=== PATIENT | female | born 1985 | race Asian ===

== ENCOUNTER 2018-07-02 21:59 | Emergency (ER) | payer OTHER ==
[2018-07-02 22:19] VITALS: BP 99/67
--- NOTE | 2018-07-02 22:55 | EDPHY ---
H & P Stated Complaint: right knee swelling Time Seen by Provider: 07/02/18 22:45 HPI/ROS: Chief Complaint: Lesion behind right knee HPI: 32-year-old woman had which she believes was eczema behind her right knee. She scraped off a scab about a week ago while she was traveling in [facility]. She was given ointment which include antibiotic, antifungal and a steroid. She has been applying this for the last week. She says the ointment is burning and she concerned that might be infected. Denies any fevers or chills. She has been able to fully bend and extend her leg. She has been covering it up with a bandage. Last night she lifted open to the air. Denies any fevers or chills. ROS: 10 systems were reviewed and were negative except those elements noted in the HPI. PMH: Denies Social History: No smoking, no alcohol, no recreational drug use Family History: non-contributory Physical Exam: General: Awake, alert, no acute distress Right leg: Patient has a area of excoriation and skin abrasion approximately 2 cm x 1 cm in the the popliteal fossa. There is no significant swelling. There is no erythema. Is not warm to touch. There is some well-appearing granulation tissue. There is no knee joint swelling. She has full range of motion without pain. There is no tenderness. There is no proximal lymphangitic streaking. There is no lymphadenopathy. Skin: No rash - Personal History LMP (Females 10-55): IUD In Place Current Tetanus Diphtheria and Acellular Pertussis (TDAP): Unsure - Medical/Surgical History Hx Asthma: No Hx Chronic Respiratory Disease: No Hx Diabetes: No Hx Cardiac Disease: No Hx Renal Disease: No Hx Cirrhosis: No Hx Alcoholism: No Hx HIV/AIDS: No Hx Splenectomy or Spleen Trauma: No - Social History Smoking Status: Never smoked Constitutional: Initial Vital Signs Temperature (C) 36.9 C 07/02/18 22:17 Heart Rate 59 L 07/02/18 22:17 Respiratory Rate 20 07/02/18 22:17 Blood Pressure 99/67 L 07/02/18 22:17 O2 Sat (%) 96 07/02/18 22:17 Allergies/Adverse Reactions: No Known Allergies Allergy (Unverified 07/02/18 22:16) Home Medications: [facility] Medical Decision Making ED Course/Re-evaluation: Patient has an area of healing excoriation in the back of her right knee. Does not appear infected at this time. I have her instructed to apply antibiotic ointment but to keep the area open to air as much as possible. Will refer her to primary care follow-up in 4-5 days for recheck. Departure - Departure Disposition: Home, Routine, Self-Care Clinical Impression: Abrasion Condition: Good Instructions: Abrasion (ED) Additional Instructions: Apply antibiotic ointment twice a day. Keep the area covered with a breathable dressing, but try to keep it open to the air as much as possible. Follow-up with primary care in 3-4 days for recheck. Return to the emergency department for increasing redness, swelling, worsening pain, discharge from the wound, or any other concerns. Referrals: Eugenio Finney MD [Medical Doctor] - As per Instructions
== END 2018-07-02 23:10 | disposition home or self-care (01) ==
DX: M79.89 Other specified soft tissue disorders (principal)